=== PATIENT | male | born 1975 | race Caucasian/White ===

== ENCOUNTER 2021-01-19 11:23 | Emergency (ER) | payer OTHER, BC, SELFPAY ==
[2021-01-19] VITALS (7 sets, daily range): BP systolic 153–189; BP diastolic 97–118; PULSE 69–84; RESP 16–18; TEMP 36.6; O2SAT 97–100; BMI 33.7
--- NOTE | ~2021-01-19 | CT_ITS ---
EXAMINATION: CT CERVICAL SPINE WITHOUT CONTRAST CLINICAL INFORMATION: Trauma COMPARISON: None TECHNIQUE: CT cervical spine with sagittal and coronal reconstructions This CT examination was performed using dose optimization techniques as appropriate, variously including the following: *Automated exposure control *Adjustment of mA and/or kV according to patient size (this includes techniques or standardized protocols for targeted exams where dose is matched to indication/reason for exam; i.e. extremities or head) *Use of iterative reconstruction technique DLP: 732 mGy-cm FINDINGS: No abnormal prevertebral soft tissue swelling is seen. Paraspinal muscle planes appear unremarkable. No acute cervical spine fractures identified. There is disc space narrowing at the C5-C6 and C6-C7 disc space levels as well as marginal spurring seen C4-C7. There is anterior neural foramina encroachment from spurring of the joints of Luschka seen at the C5-C6 and C6-C7 levels bilaterally. CT/CT cervical spine wo con IMPRESSION: No acute cervical spine fracture. Cervical spondylosis C5-C7.
--- NOTE | ~2021-01-19 | MR_ITS ---
MRI OF THE BRAIN WITHOUT IV CONTRAST INDICATION: Rule out intracranial hemorrhage. COMPARISON: Head CT 01/19/2021. TECHNIQUE: Multiplanar multisequence MR imaging of the brain was obtained without IV contrast. FINDINGS: There is no hydrocephalus, extra-axial surface collection, or herniation. Mild nonspecific T2 signal changes within the supratentorial white matter. There is a small 5 mm colloid cyst along the anterior roof of the third ventricle. The major flow voids at the skull base are preserved. There is no acute infarct on diffusion-weighted imaging. There is no intracranial hemorrhage on the gradient recalled echo acquisition. The midline structures are normal. The cerebellar tonsils are normally positioned. The cerebellum and brainstem are normal. The craniocervical junction is normal. Osseous marrow signal intensity is homogenous. The visualized soft tissues are unremarkable. There is a 3 cm retention cyst within the left maxillary sinus and a 1.4 cm retention cyst within the right maxillary sinus. MR/MR head/brain wo con IMPRESSION: - There is a small 5 mm colloid cyst along the anterior roof of the third ventricle. No hydrocephalus. - There is no MRI evidence of acute intracranial hemorrhage. - Mild nonspecific T2 signal changes within the supratentorial white matter. - There is a 3 cm retention cyst within the left maxillary sinus and a 1.4 cm retention cyst within the right maxillary sinus.
--- NOTE | ~2021-01-19 | CT_ITS ---
EXAMINATION: CT HEAD WITHOUT CONTRAST CLINICAL INFORMATION: Trauma. COMPARISON: None TECHNIQUE: Contiguous axial imaging was performed from the skull base to vertex without intravenous administration of contrast. This CT examination was performed using dose optimization techniques as appropriate, variously including the following: *Automated exposure control *Adjustment of mA and/or kV according to patient size (this includes techniques or standardized protocols for targeted exams where dose is matched to indication/reason for exam; i.e. extremities or head) *Use of iterative reconstruction technique DLP: 850 mGy-cm FINDINGS: There is a punctate hyperdensity roof of the third ventricle. No intra-axial or extra-axial bleed, masses or midline shift seen. No abnormal mass effect or midline shift is seen. Jones to white matter differentiation is well preserved. No extra-axial fluid collections are identified. The ventricles are normal in size. There is no abnormal attenuation within the brain parenchyma. The osseous structures and soft tissues are normal. The mastoid air cells and visualized portions of the paranasal sinuses are well aerated with small polyp or retention cyst in bilateral maxillary sinuses. CT/CT head/brain wo con IMPRESSION: Punctate hyperdensity in the roof of third ventricle question small hemorrhage versus lesion in the roof of third ventricle/colloid cyst. There is no intraparenchymal or extra-axial bleed or mass.
--- NOTE | ~2021-01-19 | CT_ITS ---
EXAMINATION: CT CHEST, ABDOMEN AND PELVIS WITH CONTRAST CLINICAL INFORMATION: Trauma COMPARISON: No pertinent prior studies are available for comparison. TECHNIQUE: Multidetector volumetric imaging was performed from the thoracic inlet through the pubic symphysis following administration of 85 mL Omnipaque 350 intravenous contrast. Sagittal and coronal reformatted images were obtained on the technologist workstation. DLP: 771+1655 mGy-cm. FINDINGS: CHEST: Lungs: Central airways are patent. No bronchial wall thickening is appreciated. No bronchiectasis. No confluent parenchymal disease. There are scattered sub-4 mm densities seen bilaterally. There is a 5 mm subpleural density seen within the right lower lobe on image 347 of 530. There is a 7 mm subpleural density seen within the right middle lobe on image 316 of 530 and series #29. Mediastinum: Thyroid gland appears unremarkable. Heart normal size. No pericardial effusion. The ascending thoracic aorta measures up to 4.2 cm in diameter. No evidence of thoracic aortic dissection or transection. No mediastinal or hilar lymphadenopathy. Pleura: There is no significant effusion. No pleural mass or thickening. No pneumothorax. Chest Wall/Axilla: No axillary lymphadenopathy is seen. About the left anterior chest wall there is some subcutaneous fat stranding present consistent with hematoma/bruise. ABDOMEN/PELVIS: Liver, Gallbladder, Biliary Tree: The liver is prominent at 20 cm in vertical span. No evidence of hepatic laceration or subcapsular collection. No focal mass is seen within the liver. No intrahepatic bile duct dilatation. The gallbladder is unremarkable with no evidence of radiopaque gallstones, gallbladder wall thickening, or pericholecystic inflammatory changes. Pancreas: Unremarkable. Spleen: Unremarkable without evidence of laceration or subcapsular collection. Adrenal Glands: Unremarkable. Kidneys and Ureters: The kidneys are normal in size, shape, and attenuation. No hydronephrosis or hydroureter or calculi seen. No perinephric stranding. No renal laceration or subcapsular fluid collection. Bladder: Unremarkable. Gastrointestinal Tract: No dilated loops of large or small bowel are evident. No free air or free fluid. There is sigmoid diverticulosis without evidence of acute diverticulitis. No evidence of acute appendicitis. Abdominal Wall: Small fat-containing umbilical hernia is seen. Lymph Nodes: No lymphadenopathy appreciated. Vascular: Unremarkable. Pelvic Viscera: Unremarkable. Osseous Structures: There are mildly distracted fractures posterior aspects of the right L1-L2 transverse processes. No suspicious destructive bony lesions identified. CT/CT abdomen pelvis w con IMPRESSION: No significant acute parenchymal disease within the chest. No evidence of solid organ laceration or subcapsular fluid collection. Fractures of the right L1 and L2 transverse processes. Prominent ascending thoracic aorta measuring up to 4.2 cm in diameter without evidence of dissection or transection. Right lung densities as described measuring up to 7 mm in diameter According to the UPDATED 2017 Fleischner Society recommendations, the advised follow-up imaging for multiple solid nodules, the largest measuring 6 mm or greater, is: LOW RISK PATIENT: CT at 3-6 months, then consider CT at 18-24 months. HIGH RISK PATIENT: CT at 3-6 months, then at 18-24 months.
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
[2021-01-19 11:53] LABS: MANUAL DIFF FLAG NO
[2021-01-19 11:55] LABS: Basophils Percent Auto 0.5 % (0-2); Eosinophils Absolute Auto 0.4 X10*3/uL (0.0-0.4); Eosinophils Percent Auto 4.5 % (0-4); Hematocrit 42.4 % (42-52); Hemoglobin 14.3 g/dl (14.0-18.0); Imm Gran Abs Auto 0.04 X10*3/uL (0.00-0.03); Imm Gran Pct Auto 0.5 % (0.0-0.4); Lymphocytes Absolute Auto 2.8 X10*3/uL (1.2-4.9); Lymphocytes Percent Auto 34.3 % (20-40); Mean Corpuscular HGB Conc 33.7 g/dl (31.0-36.0); Mean Corpuscular Hemoglobin 31.4 pg (27.0-33.0); Mean Platelet Volume 9.6 fL (9.4-12.4); Monocytes Absolute Auto 0.5 X10*3/uL (0.1-1.2); Monocytes Percent Auto 6.6 % (2-11); Neutrophils Absolute Auto 4.4 X10*3/uL (2.0-8.3); Neutrophils Percent Auto 53.6 % (45-73); Platelet Count 222 X10*3/uL (160-400); Red Blood Count 4.56 X10*6/uL (4.60-5.80); Red Cell Distribution Width 12.2 % (11.0-16.0); White Blood Count 8.2 X10*3/uL (4.8-10.8)
[2021-01-19 12:00] LABS: INTERNATIONAL NORM RATIO 1.2 (0.9-1.1); Prothrombin Time 14.6 SEC (10.8-13.0)
[2021-01-19] MEDS: iohexoL 350 MG/ML 100 ML INFUS..BTL IV (12:15)
[2021-01-19 12:18] LABS: Alanine Aminotransferase 20 U/L (0-40); Albumin Level 4.4 g/dL (3.5-5.0); Alkaline Phosphatase 76 U/L (39-117); Anion Gap 12 (12-20); Aspartate Amino Transferase 18 U/L (5-37); Bilirubin Direct 0.2 mg/dL (0.0-0.5); Bilirubin Total 0.4 mg/dL (0.0-1.0); Blood Urea Nitrogen 12 mg/dL (9-16); Calcium 9.6 mg/dL (8.4-10.2); Carbon Dioxide 30 mmol/L (22-29); Chloride 103 mmol/L (96-108); Creatinine Clr Calc Pharmacy 154.7; Estimated Glomerular Filt Rate > 60; Glucose Random 100 mg/dL (60-115); Potassium 3.8 mmol/L (3.3-5.1); Sodium 141 mmol/L (135-145); Total Protein 6.9 g/dL (6.5-8.0)
[2021-01-19] MEDS: 0.9 % Sodium Chloride 1,000 ML 999 ML IV (12:28)
[2021-01-19] MEDS: Morphine Sulfate 4 MG/ML CARTRIDGE IVPUSH (13:34)
--- NOTE | 2021-01-19 17:07 | PC.NURSE ---
MLP aware of htn. plan at this time is to monitor because patient is symptomatic.
== END 2021-01-19 17:49 | disposition home or self-care (01) ==
PROVIDERS: Nurse Practitioner Family; Emergency Provider Emergency Medicine
DX: S32.009A Unspecified fracture of unspecified lumbar vertebra, initial encounter for closed fracture (principal); G44.309 Post-traumatic headache, unspecified, not intractable; M54.2 Cervicalgia; R07.81 Pleurodynia; M54.5 Low back pain; M54.6 Pain in thoracic spine; I10 Essential (primary) hypertension; E78.5 Hyperlipidemia, unspecified; V43.52XA Car driver injured in collision with other type car in traffic accident, initial encounter; Y93.9 Activity, unspecified; Y92.410 Unspecified street and highway as the place of occurrence of the external cause; Y99.9 Unspecified external cause status; Z79.899 Other long term (current) drug therapy
CPT/HCPCS: 36415; 70450; 70551; 71260; 72125; 74177; 80048; 80076; 85025; 85610; 93005; 96365; 96375; 99284; J2270; Q9967

== ENCOUNTER → 2021-01-25 11:19 | Outpatient (BNVA) | payer OTHER, SELFPAY | PROVIDERS: Visit Provider Physician Assistant | DX: M25.511 Pain in right shoulder (principal); T14.8XXD Other injury of unspecified body region, subsequent encounter; X58.XXXD Exposure to other specified factors, subsequent encounter; S32.019D Unspecified fracture of first lumbar vertebra, subsequent encounter for fracture with routine healing; S32.029D Unspecified fracture of second lumbar vertebra, subsequent encounter for fracture with routine healing; V89.2XXD Person injured in unspecified motor-vehicle accident, traffic, subsequent encounter | CPT/HCPCS: 99204 ==

== ENCOUNTER → 2021-02-03 09:21 | Outpatient (BNVA) | payer OTHER, SELFPAY | PROVIDERS: Visit Provider Physician Assistant Medical | DX: S32.019D Unspecified fracture of first lumbar vertebra, subsequent encounter for fracture with routine healing (principal); S32.029D Unspecified fracture of second lumbar vertebra, subsequent encounter for fracture with routine healing; V89.2XXD Person injured in unspecified motor-vehicle accident, traffic, subsequent encounter; M25.511 Pain in right shoulder | CPT/HCPCS: 99214 ==

== ENCOUNTER → 2021-02-16 07:51 | Outpatient (BNVA) | payer OTHER, SELFPAY | PROVIDERS: Visit Provider Internal Medicine | DX: S32.009D Unspecified fracture of unspecified lumbar vertebra, subsequent encounter for fracture with routine healing (principal); V89.0XXD Person injured in unspecified motor-vehicle accident, nontraffic, subsequent encounter | CPT/HCPCS: 99213 ==

== ENCOUNTER 2021-11-03 14:49 | Outpatient (REF) | payer BC, SELFPAY ==
--- NOTE | ~2021-11-03 | CT_ITS ---
EXAMINATION: CT CHEST WITHOUT CONTRAST CLINICAL INFORMATION: Pulmonary nodule COMPARISON: Previous chest CT December 2020 TECHNIQUE: Multidetector volumetric CT imaging of the chest was done. Axial MIP volume rendering provided. Sagittal and coronal reformatted images were obtained. This CT examination was performed using dose optimization techniques as appropriate, variously including the following: *Automated exposure control *Adjustment of mA and/or kV according to patient size (this includes techniques or standardized protocols for targeted exams where dose is matched to indication/reason for exam; i.e. extremities or head) *Use of iterative reconstruction technique DLP: 258 mGy-cm FINDINGS: INSPECTOR BALANCE TRUING: LUNGS: The small pulmonary nodules are stable. Largest is a 7 mm peripheral or subpleural right middle lobe nodule adjacent to the minor fissure axial image 339 series 7 probably representing a subpleural lymph node. No new pulmonary nodule is seen. MEDIASTINUM: The ascending thoracic aorta is upper normal in size. The mediastinum is otherwise normal. PLEURA: There is no pleural effusion. No pleural mass or thickening. AXILLA: No lymphadenopathy. UPPER ABDOMEN: Unremarkable. OSSEOUS STRUCTURES: There are mild degenerative changes of the spine. CT/CT chest wo con IMPRESSION: Stable small pulmonary nodules. Fleischner guidelines were followed.
== END 2021-11-03 14:50 | disposition home or self-care (01) ==
LOC: HO.CT 14:49
PROVIDERS: PCP Family Medicine; Visit Provider Family Medicine
DX: R91.8 Other nonspecific abnormal finding of lung field (principal)
CPT/HCPCS: 71250

== ENCOUNTER 2021-11-21 15:44 | Emergency (ER) | payer BC, SELFPAY ==
--- NOTE | 2021-11-21 | ECG_ITS ---
Test Reason : Code Blood Pressure : / mmHG Vent. Rate : 093 BPM Atrial Rate : 093 BPM P-R Int : 162 ms QRS Dur : 112 ms QT Int : 452 ms P-R-T Axes : 032 017 067 degrees QTc Int : 561 ms Normal sinus rhythm Prolonged QT Abnormal ECG When compared with ECG of 21-NOV-2021 16:35, No significant change was found Referred By: Morena Linares Electronically Signed By:VERA QUINTERO
--- NOTE | ~2021-11-21 | CT_ITS ---
EXAMINATION: CT HEAD WITHOUT CONTRAST CLINICAL INFORMATION: Numbness. COMPARISON: Brain MRI 01/19/2021. CT head 01/19/2021. TECHNIQUE: Contiguous axial imaging was performed from the skull base to vertex without intravenous administration of contrast. This CT examination was performed using dose optimization techniques as appropriate, variously including the following: *Automated exposure control *Adjustment of mA and/or kV according to patient size (this includes techniques or standardized protocols for targeted exams where dose is matched to indication/reason for exam; i.e. extremities or head) *Use of iterative reconstruction technique DLP: 800 mGy-cm FINDINGS: There is no acute intracranial hemorrhage or abnormal extra-axial collection. No intracranial mass effect or midline shift. Lateral and third ventricles are normal. No hydrocephalus. Jones-white matter differentiation is preserved and there is no evidence of acute territorial infarct. The calvarium and skull base are intact. Mastoid air cells and middle ear cavities are well aerated. No active paranasal sinus disease. CT/CT head/brain wo con IMPRESSION: Unremarkable CT scan of the head. No evidence of acute territorial infarct or hemorrhage.
--- NOTE | ~2021-11-21 | XR_ITS ---
EXAMINATION: XR CHEST CLINICAL INFORMATION: Chest tightness. COMPARISON: CT chest dated from 11/03/2021. TECHNIQUE: 2 views of the chest were obtained. FINDINGS: Normal appearance of the cardiomediastinal silhouette. No focal airspace opacities, pleural effusions or pneumothorax. No acute osseous abnormalities. The visualized upper abdomen is within normal limits. XR/XR chest 2V IMPRESSION: No acute cardiopulmonary findings.
[2021-11-21 15:56] VITALS: BP 133/77; PULSE 74; O2SAT 99
--- NOTE | 2021-11-21 15:58 | ED_ITS ---
HPI - General Adult General Chief complaint: Chest Pain Stated complaint: chest pain Time Seen by Provider: 11/21/21 15:57 Source: patient Mode of arrival: ambulatory Limitations: no limitations History of Present Illness HPI narrative: Patient is a 46 year old male presenting to the emergency department today with chest tightness and numbness in his right finger tips. Patient states that starting earlier today, he began to have numbness and tingling in his right finger tips with some chest tightness. Patient states that the chest tightness resolved but he is still having the numbness and tingling in his right finger tips that comes and goes. Patient denies any dizziness, lightheadedness, abdomi nal pain, nausea, vomiting, fever, chills, blurry vision, double vision, loss of vision, chest pain, difficulty breathing, shortness of breath, back pain, night sweats, pain with urination, increased urinary frequency, increased urinary urgency, blood in his urine or stool, syncope or a near syncopal episode, recent trauma or falls, bowel incontinence, bladder incontinence, bowel retention, bladder retention, or any other complaints at this time. Patient states that he has a history of hypertension for which he takes lisinopril and 1 other medication. Patient states that he drinks some alcohol occasionally and occasionally smokes weed but he denies any other drug use or tobacco use. Onset (ago): hour(s) Location: chest and upper extremity Severity: mild Severity scale (1-10): 3 Quality: dull Pain Consistency: intermittent Relieving factors: none Exacerbating factors: none Associated symptoms: denies other symptoms Treatments prior to arrival: none Related Data Previous Rx's Medication Instructions Recorded cyclobenzaprine 10 mg tablet 10 mg PO TID PRN #10 tab 01/19/21 lidocaine 5 % topical patch 1 patch TOPICAL DAILY #15 ea 01/19/21 (Lidoderm) oxycodone 5 mg tablet 5 mg PO Q8H PRN #10 tab 01/19/21 Allergies Allergy/AdvReac Type Severity Reaction Status Date / Time Penicillins [PCN] Allergy Unknown UNKNOWN Unverified 05/12/20 15:00 Review of Systems Constitutional: Constitutional: Reports no additional constitutional complaints, Denies chills, Denies fever(s) and Denies night sweats Eyes: Eyes: Reports no additional eye complaints, Denies blurry vision, Denies change in vision, Denies diplopia, Denies eye discharge, Denies loss of vision and Denies eye pain ENT: Denies dizziness Cardiovascular: Cardiovascular: Reports no additional cardiovascular complaints, Denies chest pain, Denies lightheadedness, Denies Loss of Consciousness and Denies dyspnea Respiratory: Respiratory: Reports no additional respiratory complaints and Denies dyspnea Gastrointestinal: Gastrointestinal: Reports no additional gastrointestinal complaints, Denies abdominal pain, Denies melena, Denies hematochezia, Denies change in bowel habits and Denies change in stool character Genitourinary: Genitourinary: Reports no additional male genitourinary complaints, Denies hematuria, Denies oliguria, Denies difficulty urinating, Denies dysuria, Denies urinary frequency, Denies urinary hesitancy, Denies urinary incontinence and Denies urinary urgency Musculoskeletal: Musculoskeletal: Reports no additional musculoskeletal complaints, Reports numbness and Reports tingling Neurologic: Denies dizziness, Denies loss of vision, Reports numbness and Reports tingling Psychiatric: Psychiatric: Reports no additional psychiatric complaints Endocrine: Endocrine: Reports no additional endocrine complaints Hematologic/Lymphatic: Hematologic/Lymphatic: Reports no additional hematologic/lymphatic complaints Allergic/Immunologic: Allergic/Immunologic: Reports no additional allergic/immunologic complaints PMFSH Past Medical History Attestation statement: The following information was validated with the patient. Source: old records reviewed Medical History High cholesterol HTN (hypertension) Social History Social History Alcohol intake: current Alcohol intake frequency: a few times a week Patient Tobacco Use Status: Never used Tobacco Use of substances other than those prescribed or required for medical reasons: Yes Substance Use Type: Marijuana Advance Directives: No Advance Directives Information Provided: No Physical Exam ED Vital Signs: Vital Signs - 24 hr 11/21/21 16:00 11/21/21 17:33 11/21/21 17:40 Temperature 97.6 F Pulse Rate 70 86 80 Respiratory Rate 19 14 14 Blood Pressure 145/96 H 131/92 H 141/92 H Pulse Oximetry 94 99 99 BMI result Body Mass Index 31.8 Const General: cooperative, no acute distress, alert and awake Nutritional Appearance: well nourished Orientation/consciousness: patient oriented x3 Limitations: no limitations HENMT Head: Yes normal to inspection and Yes atraumatic Ears: hearing grossly normal bilaterally and external ears normal General nose exam: Normal external nose present, no nasal discharge noted and no epistaxis Face and sinus: Yes normal facial exam, No abrasion and No laceration Mouth: Normal oral and palatal mucosa present, no drooling and no muffled voice Eyes General: appearance normal, both eyes and all related structures Periorbital: periorbital findings normal Eyelids: Yes eyelids normal Conjunctivae: conjunctivae normal Pupils: Equal, round and reactive pupils present EOM: EOMs intact bilaterally Neck Neck: Yes normal visual inspection, Yes full ROM and Yes no lymphadenopathy Chest Chest palpation & inspection: normal inspection of the chest Resp Effort & Inspection: normal respiratory effort and able to speak in complete sentences Auscultation: clear to auscultation bilaterally Cardio Rate: regular rate Rhythm: regular rhythm GI Inspection: Yes normal to inspection Palpation (GI): Soft to palpation, not firm, nontender, no guarding and not rigid Neuro General: patient oriented x3 and moves all extremities Cranial nerves: Yes Equal, round and reactive pupils present Cognition (Neuro): normal cognition Motor exam (neuro): 5/5 motor strength present throughout Sensory Exam: Normal double simultaneous stimulation for sensation Coordination: [id number] test normal Extrem General: Yes normal to inspection, Yes full ROM and Yes capillary refill normal Psych Appearance: grossly normal Mental Status: mental status grossly normal Affect: normal affect Attitude: cooperative Thought process: Normal thought process present Thought content: Normal thought content present Insight: Good insight present (Psych) Course Course Course Narrative: 1600 - Patient was placed immediately on the plant pathologist and I determined that it was normal sinus rhythm at the bed side. 171 - Patient's came out of the room stating that the patient wasn't acting right. Upon reevaluation, the patient did not have a pulse and was in ventricular tachycardia. CPR was immediately initiated. Patient was given 1 round of epinepherine and shocked. Immediately after shocking, the patient regained consciousness/ROSC. CPR was undergone for approximately 3 minutes. Patient was alert and orientated post ROSC, maintaining his airway. 1714 - Spoke to Dr. Chacko who stated the patient was in [place] and recommended hanging IV Magnesium only with nothing else. Additionally, he recommended the patient go to [facility] CCU. 1718 - I spoke to Dr. Molina from [facility] cardiology who agreed to accept the patient for transfer. Medical Decision Making MDM Narrative Medical decision making narrative: Patient is a 46 year old male presenting to the emergency department today with resolved chest tightness and right finger tip numbness. Patient's physical exam was unremarkable, including a normal neurologic exam. Patient's blood work showed a slightly elevated troponin at 4.0 but was otherwise unremarkable. Patient's EKG showed a prolonged QT at 529ms. Patient's chest x-ray and head CT showed no acute process. Patient went into cardiac arrest at 1711, CPR was immediately started, 1 round of epinephrine was given, and the patient was shoc ked per ACLS protocol. Patient regained consciousness/ROSC after approximately 3 minutes of CPR. Patient was AOx4 after obtaining ROSC. Patient was maintaining his airway after obtaining ROSC. Patient's EKG post arrest showed normal sinus rhythm, an incomplete left bundle branch block, and a prolonged QT at 561. I spoke to Dr. Chacko, the logistics research engineer motion picture set up worker, who recommended the patient have IV magnesium and nothing else. He also recommended the patient be sent to CCU at [facility]. I then spoke to Dr. Molina, a logistics research engineer at [facility] who agreed to accept the patient as a transfer to the CCU. I explained my physical exam findings as well as all test results to the patient and the patient's . I answered all questions asked by the patient and the patient's . Patient transferred to [facility], emergent. Differential Diagnosis Differential Diagnosis: arrythmia, AMI, NSTEMI Medical Records Medical records reviewed: Yes I reviewed the patient's medical records. Lab Data Lab results reviewed: Yes I reviewed the patient's lab results. Result diagrams: 11/21/21 16:48 11/21/21 16:48 Labs: Lab Results 11/21/21 11/21/21 11/21/21 Range/Units 16:48 16:48 16:48 WBC 9.5 (4.8-10.8) X10*3/uL RBC 4.59 L (4.60-5.80) X10*6/uL Hgb 14.5 (14.0-18.0) g/dl Hct 42.6 (42.0-52.0) % MCV 92.8 (80.0-98.0) fL MCH 31.6 (27.0-33.0) pg MCHC 34.0 (31.0-36.0) g/dl RDW 12.0 (11.0-16.0) % Plt Count 211 (160-400) X10*3/uL MPV 9.4 (9.4-12.4) fL Immature Gran % (Auto) 0.3 (0.0-0.4) % Neut % (Auto) 71.4 (45-73) % Lymph % (Auto) 18.1 L (20-40) % Dickenson % (Auto) 6.9 (2-11) % Eos % (Auto) 2.7 (0-4) % Baso % (Auto) 0.6 (0-2) % Lymph # (Auto) 1.7 (1.2-4.9) X10*3/uL Dickenson # (Auto) 0.7 (0.1-1.2) X10*3/uL Eos # (Auto) 0.3 (0.0-0.4) X10*3/uL Baso # (Auto) 0.1 (0.0-0.2) X10*3/uL Abs Immat Gran (auto) 0.03 (0.00-0.03) X10*3/uL Absolute Neuts (auto) 6.8 (2.0-8.3) x10*3/uL Absolute Nucleated RBC 0.000 (0.0-0.012) X10*3/uL Nucleated RBC % (auto) 0.0 (0.0-0.2) /100WBC Sodium 140 (135-145) mmol/L Potassium 4.5 (3.3-5.1) mmol/L Chloride 102 (96-108) mmol/L Carbon Dioxide 29 (22-29) mmol/L Anion Gap 14 (12-20) BUN 10 (9-16) mg/dL Creatinine 1.00 (0.5-1.4) mg/dL Estim Creat Clear Calc 126.5 Estimated GFR > 60 Random Glucose 123 H (60-115) mg/dL Calcium 9.9 (8.4-10.2) mg/dL Magnesium 2.0 (1.6-2.6) mg/dL Total Bilirubin 0.7 (0.0-1.0) mg/dL AST 19 (5-37) U/L ALT 23 (0-40) U/L Alkaline Phosphatase 71 (39-117) U/L Troponin I High Sens 4.9 (<3.5-35.0) ng/L Total Protein 7.0 (6.5-8.0) g/dL Albumin 4.5 (3.5-5.0) g/dL Imaging Data CT scan - head: Attestation: I personally reviewed and interpreted this imaging study as follows: My impression: No acute process. Radiologist's impression: EXAMINATION: CT HEAD WITHOUT CONTRAST CLINICAL INFORMATION: Numbness.? COMPARISON: Brain MRI 01/19/2021. CT head 01/19/2021. TECHNIQUE: Contiguous axial imaging was performed from the skull base to vertex without intravenous administration of contrast. This CT examination was performed using dose optimization techniques as appropriate, variously including the following: *Automated exposure control *Adjustment of mA and/or kV according to patient size (this includes techniques or standardized protocols for targeted exams where dose is matched to indication/reason for exam; i.e. extremities or head) *Use of iterative reconstruction technique DLP: 800 mGy-cm FINDINGS: There is no acute intracranial hemorrhage or abnormal extra-axial collection. No intracranial mass effect or midline shift. Lateral and third ventricles are normal. No hydrocephalus. Jones-white matter differentiation is preserved and there is no evidence of acute territorial infarct. The calvarium and skull base are intact. Mastoid air cells and middle ear cavities are well aerated. No active paranasal sinus disease. CT/CT head/brain wo con IMPRESSION: Unremarkable CT scan of the head. No evidence of acute territorial infarct or hemorrhage. Dictated By: Alli Gu MD Signed By: Electronically signed by Alli Gu MD 11/21/21 9712 Chest x-ray: Attestation: I personally reviewed and interpreted this imaging study as follows: My impression: No acute process Radiologist's impression: EXAMINATION: XR CHEST CLINICAL INFORMATION: Chest tightness. COMPARISON: CT chest dated from 11/03/2021. TECHNIQUE: 2 views of the chest were obtained. FINDINGS: Normal appearance of the cardiomediastinal silhouette. No focal airspace opacities, pleural effusions or pneumothorax. No acute osseous abnormalities. The visualized upper abdomen is within normal limits. XR/XR chest 2V IMPRESSION: No acute cardiopulmonary findings. Dictated By: Dinorah Li Signed By: Electronically signed by Nani 11/21/21 1645 ECG Data Attestation: I personally reviewed and interpreted this ECG as follows: Prior ECG tracings: available for review Interpretation: Vent. Rate: 070 BPM ? ? Atrial Rate: 070 BPM P-R Int: 166 ms? QRS Dur: 116 ms QT Int: 490 ms ? ? ? P-R-T Axes: 008 003 040 degrees QTc Int: 529 ms ? Normal sinus rhythm Prolonged QT When compared with ECG of 19-JAN-2021 12:15, No significant change was found Second EKG done, post arrest at 1721 Vent. Rate: 093 BPM ? ? Atrial Rate: 093 BPM P-R Int: 162 ms? QRS Dur: 112 ms QT Int: 452 ms ? ? ? P-R-T Axes: 032 017 067 degrees QTc Int: 561 ms ? Normal sinus rhythm Prolonged QT Incomplete left bundle branch block Critical Care Time Critical Care Time Critical Care Time: Yes Total Critical Care Time: 45 Attestation: I spent 45 minutes of Critical Care Time with this patient. This does not inc lude time spent on separately reported billable procedures. Discharge Plan Discharge Clinical Impression: Ventricular tachycardia, Cardiac arrest, Long QT interval, Atypical chest pain Patient Disposition: [facility] Transfer Details: Transferred to [facility] CCU Prescriptions: No Action cyclobenzaprine 10 mg tablet 10 mg PO TID PRN (Reason: muscle spasm) Qty: 10 0RF oxycodone 5 mg tablet 5 mg PO Q8H PRN (Reason: pain) Qty: 10 0RF lidocaine [Lidoderm] 5 % adhesive patch,medicated 1 patch topical DAILY Qty: 15 0RF Rx Instructions: leave on most painful area for up to 12 hrs Print Language: Bahamian
[2021-11-21 16:00] VITALS: BP 145/96; PULSE 70; RESP 19; TEMP 36.4; O2SAT 94; BMI 31.8
--- NOTE | 2021-11-21 16:02 | ECG_ITS ---
Test Reason : CHEST PAIN Blood Pressure : / mmHG Vent. Rate : 070 BPM Atrial Rate : 070 BPM P-R Int : 166 ms QRS Dur : 116 ms QT Int : 490 ms P-R-T Axes : 008 003 040 degrees QTc Int : 529 ms Normal sinus rhythm Prolonged QT Abnormal ECG When compared with ECG of 19-JAN-2021 12:15, No significant change was found Referred By: Morena Linares Electronically Signed By:VERA QUINTERO
[2021-11-21 16:54] LABS: MANUAL DIFF FLAG NO
[2021-11-21 16:55] LABS: Basophils Absolute Auto 0.1 X10*3/uL (0.0-0.2); Basophils Percent Auto 0.6 % (0-2); Eosinophils Absolute Auto 0.3 X10*3/uL (0.0-0.4); Eosinophils Percent Auto 2.7 % (0-4); Hematocrit 42.6 % (42.0-52.0); Hemoglobin 14.5 g/dl (14.0-18.0); Imm Gran Abs Auto 0.03 X10*3/uL (0.00-0.03); Imm Gran Pct Auto 0.3 % (0.0-0.4); Lymphocytes Absolute Auto 1.7 X10*3/uL (1.2-4.9); Lymphocytes Percent Auto 18.1 % (20-40); Mean Corpuscular Hemoglobin 31.6 pg (27.0-33.0); Mean Corpuscular Volume 92.8 fL (80.0-98.0); Mean Platelet Volume 9.4 fL (9.4-12.4); Monocytes Absolute Auto 0.7 X10*3/uL (0.1-1.2); Monocytes Percent Auto 6.9 % (2-11); Neutrophils Absolute Auto 6.8 x10*3/uL (2.0-8.3); Neutrophils Percent Auto 71.4 % (45-73); Platelet Count 211 X10*3/uL (160-400); Red Blood Count 4.59 X10*6/uL (4.60-5.80); White Blood Count 9.5 X10*3/uL (4.8-10.8)
[2021-11-21 17:16] LABS: Troponin-I High Sensitivity 4.9 ng/L (<3.5-35.0)
[2021-11-21 17:28] LABS: Alanine Aminotransferase 23 U/L (0-40); Albumin Level 4.5 g/dL (3.5-5.0); Alkaline Phosphatase 71 U/L (39-117); Anion Gap 14 (12-20); Bilirubin Total 0.7 mg/dL (0.0-1.0); Blood Urea Nitrogen 10 mg/dL (9-16); Calcium 9.9 mg/dL (8.4-10.2); Carbon Dioxide 29 mmol/L (22-29); Chloride 102 mmol/L (96-108); Creatinine Clr Calc Pharmacy 126.5; Estimated Glomerular Filt Rate > 60; Glucose Random 123 mg/dL (60-115); Potassium 4.5 mmol/L (3.3-5.1); Sodium 140 mmol/L (135-145)
[2021-11-21 17:33] VITALS: BP 131/92; PULSE 86; RESP 14; O2SAT 99
[2021-11-21 17:39] LABS: Aspartate Amino Transferase 19 U/L (5-37)
[2021-11-21 17:40] VITALS: BP 141/92; PULSE 80; RESP 14; O2SAT 99
--- NOTE | 2021-11-21 17:43 | PM.CNCAR ---
History of Present Illness History of Present Illness Date of Service: 11/21/21 Chief complaint: chest pain Narrative: This is a cardiology consultation regarding ventricular tachycardia. He present to the ER with symptoms of just not feeling well, some chest discomfort, difficulty breathing, numbness in the fingertips and face among others. Then it seems that he went into ventricular tachycardia, torsade. He was successfully resuscitated including CPR, epinephrine, some amiodarone. Now he is alert and awake. He denies any illicit drug use prior to this. Otherwise, he states that he has hypertension for which she takes medications. He is on the overweight side. He also has obstructive sleep apnea. States that he underwent recent sleep study for the same. Otherwise in the past no known cardiac issues like coronary disease, myocardial infarction or cardiomyopathy or in fact anything else cardiac related at all. EKG however shows long QT. Review of Systems Review of Systems: Yes all other systems are reviewed and are negative Constitutional: Constitutional: Reports as per HPI Eyes: Eyes: Reports as per HPI ENT: Reports as per HPI Cardiovascular: Cardiovascular: Reports as per HPI, Denies acrocyanosis, Denies cool extremities, Reports chest pain, Denies leg edema, Denies lightheadedness, Denies palpitations and Reports dyspnea Respiratory: Respiratory: Reports as per HPI, Reports no additional respiratory complaints and Reports dyspnea Gastrointestinal: Gastrointestinal: Reports as per HPI and Reports no additional gastrointestinal complaints Genitourinary: Genitourinary: Reports no additional male genitourinary complaints and Reports as per HPI Musculoskeletal: Musculoskeletal: Reports no additional musculoskeletal complaints, Reports as per HPI and Reports tingling Integumentary/Breasts: Skin/Breast: Reports system reviewed and no additional complaints, except as docu Neurologic: Reports system reviewed and no additional complaints, except as documented, Reports as per HPI, Reports tingling and Reports paresthesias Psychiatric: Psychiatric: Reports no additional psychiatric complaints and Reports as per HPI Endocrine: Endocrine: Reports no additional endocrine complaints, Reports as per HPI and Denies palpitations Hematologic/Lymphatic: Hematologic/Lymphatic: Reports no additional hematologic/lymphatic complaints and Reports as per HPI Allergic/Immunologic: Allergic/Immunologic: Reports no additional allergic/immunologic complaints and Reports as per HPI [facility] Past Medical History Medical History High cholesterol HTN (hypertension) Family History Pertinent family history: He denies any premature CAD or sudden cardiac in the family. Social History Social History (Updated 11/21/21 @ 17:52 by Spenser Chacko MD) Alcohol intake: current Alcohol intake frequency: a few times a week Patient Tobacco Use Status: Never used Tobacco Use of substances other than those prescribed or required for medical reasons: Yes Substance Use Type: Marijuana Advance Directives: No Advance Directives Information Provided: No Meds Allergies Allergy/AdvReac Type Severity Reaction Status Date / Time Penicillins [PCN] Allergy Unknown UNKNOWN Unverified 05/12/20 15:00 Active Medications: Per patient, home meds include hydrochlorothiazide, lisinopril for hypertension. Physical Exam Vital Signs: Vital Signs: Last Vital Signs Temp 97.6 F 11/21/21 16:00 Pulse 80 11/21/21 17:40 Resp 14 11/21/21 17:40 BP 141/92 H 11/21/21 17:40 Pulse Ox 99 11/21/21 17:40 BMI result Body Mass Index 31.8 Const: General: comfortable HEENT: Other: Unremarkable Head: Yes normal to inspection Neck: Neck: Yes normal visual inspection Chest: Chest palpation & inspection: normal inspection of the chest Resp: Auscultation: clear to auscultation bilaterally Cardio: Palpation: normal PMI Heart sounds: S1 normal heart sound present, S2 normal heart sound present, no gallops, no murmurs and no rubs GI: Palpation (GI): Soft to palpation Back/Spine/Pelvis: Other: unremarkable Skin: General skin exam: no rashes or lesions noted Neuro: Cognition (Neuro): normal cognition Extrem: General: Yes normal to inspection Psych: Mental Status: mental status grossly normal Objective Labs and Meds Result diagrams: 11/21/21 16:48 11/21/21 16:48 Lab results: Laboratory Results - last 24 hr 11/21/21 11/21/21 11/21/21 16:48 16:48 16:48 WBC 9.5 RBC 4.59 L Hgb 14.5 Hct 42.6 MCV 92.8 MCH 31.6 MCHC 34.0 RDW 12.0 Plt Count 211 MPV 9.4 Immature Gran % (Auto) 0.3 Neut % (Auto) 71.4 Lymph % (Auto) 18.1 L [place] % (Auto) 6.9 Eos % (Auto) 2.7 Baso % (Auto) 0.6 Lymph # (Auto) 1.7 [place] # (Auto) 0.7 Eos # (Auto) 0.3 Baso # (Auto) 0.1 Abs Immat Gran (auto) 0.03 Absolute Neuts (auto) 6.8 Absolute Nucleated RBC 0.000 Nucleated RBC % (auto) 0.0 Sodium 140 Potassium 4.5 Chloride 102 Carbon Dioxide 29 Anion Gap 14 BUN 10 Creatinine 1.00 Estim Creat Clear Calc 126.5 Estimated GFR > 60 Random Glucose 123 H Calcium 9.9 Magnesium 2.0 Total Bilirubin 0.7 AST 19 ALT 23 Alkaline Phosphatase 71 Troponin I High Sens 4.9 Total Protein 7.0 Albumin 4.5 Imaging Radiologist's impression: Impressions Chest X-Ray 11/21/21 16:22 IMPRESSION: No acute cardiopulmonary findings. Head CT 11/21/21 16:30 IMPRESSION: Unremarkable CT scan of the head. No evidence of acute territorial infarct or hemorrhage. Assessment and Plan (1) Ventricular tachycardia: Status: Acute (2) Cardiac arrest: Status: Acute (3) Long QT interval: Status: Acute Plan In the initial EKG, underlying rhythm is sinus 70/Min; QTc seems quite prolonged at around 0530 milliseconds by automated calculation. EKG from last year also shows prolonged QT. EKG strips from the time of cardiac arrest reviewed and it shows polymorphic VT/torsade. Inciting factors unclear. Electrolytes including potassium, magnesium are within normal limits. Creatinine is also normal. High sensitivity troponin within normal range. At this time, he has been successfully resuscitated. He has normal mental status and able to converse. Recommend IV magnesium in spite of normal magnesium levels. If hospital has IV isoproterenol, we can start that to maintain a high heart rate. Patient will need to be transferred to [facility] coronary care unit for further care. Echocardiogram will need to be obtained. He will likely need a diagnostic catheterization as well as EP consultation for ICD. Discussed with ER physician/PA. Also discussed with family at the bedside including and brother. Procedures Date of Service Date of Service: 11/21/21
--- NOTE | 2021-11-21 18:06 | PC.NURSE ---
pt accepted [facility] m3 room 4 nurse - nurse [phone]
== END 2021-11-21 18:00 | disposition short-term general hospital (02) ==
PROVIDERS: Physician Assistant Medical; Emergency Provider Internal Medicine; PCP Family Medicine
DX: I47.2 Ventricular tachycardia (principal); I46.9 Cardiac arrest, cause unspecified; R94.31 Abnormal electrocardiogram [ECG] [EKG]; R07.89 Other chest pain; R20.0 Anesthesia of skin; Z79.899 Other long term (current) drug therapy
CPT/HCPCS: 36415; 70450; 71046; 80053; 83735; 84484; 85025; 93005; 99284; 99291; J0171; J0282